=== PATIENT | male | born 1955 | race Two or more races ===

== ENCOUNTER 2017-07-21 16:06 | Emergency (ER) | payer BC, OTHER ==
[~2017-07-21] VITALS: Ht 167.6 cm; Wt 77.1 kg
[2017-07-21 16:26] VITALS: BP 180/77
[2017-07-21] MEDS ORDERED: KETOROLAC TROMETHAMINE INJ 30 MG/ML VIAL ONE (16:46)
[2017-07-21] MEDS: KETOROLAC TROMETHAMINE INJ 60 MG/2 ML VIAL IM ONE (16:54)
== END 2017-07-21 18:08 | disposition home or self-care (01) ==
LOC: ER 16:11
DX: M54.42 Lumbago with sciatica, left side (principal); E11.9 Type 2 diabetes mellitus without complications; E78.00 Pure hypercholesterolemia, unspecified; G89.29 Other chronic pain; I10 Essential (primary) hypertension; I70.0 Atherosclerosis of aorta; M51.26 Other intervertebral disc displacement, lumbar region; Z88.0 Allergy status to penicillin
CPT/HCPCS: 72100-TC; A4606; J1885; Z7610

== ENCOUNTER 2021-06-18 12:42 | Emergency (ER) | payer MEDICARE, BC ==
[~2021-06-18] VITALS: Ht 170.2 cm; Wt 83.9 kg
--- NOTE | 2021-06-18 13:28 | NUR ---
BIBS, C/O TINGLING BURNING SENSATION BI-LATERAL LOWER EXTREMETIES AND FEET. PAIN 2/10 AT THIS TIME BUT GETS WORSE PAIN AT TIMES.
--- NOTE | 2021-06-18 13:30 | NUR ---
PLACE INTO ER BED 9, MONITOR APPLIED, B/P CUFF AND OXYGEN READING MIDDLE LEFT FINGER, 02= [phone], CHANGED INTO HOSP GOWN, WARM BLANKET PROVIDED, PATIENT AAO x 4. NO SOB, BREATHING EVEN AND UNLABORED. YORUBA SPEAKING AWAITING MD BORRERO
--- NOTE | 2021-06-18 14:10 | NUR ---
BS -175 AT THIS TIME.
[2021-06-18 14:38] LABS: BASOPHILS % (AUTO) 0.4 % (0.0-2.0); EOSINOPHILS % (AUTO) 1.7 % (0.0-6.0); HEMATOCRIT 44 % (39-51); HEMOGLOBIN 14.7 g/dL (13.5-17.5); LYMPHOCYTES % (AUTO) 27.7 % (20.0-44.0); MEAN CORPUSCULAR HGB CONC 33 g/dl (31.0-36.0); MEAN CORPUSCULAR VOLUME 88 fL (80-96); MONOCYTES # (AUTO) 0.4 K/uL (0.1-1.30); NEUTROPHILS # (AUTO) 4.7 K/uL (1.8-8.9); NEUTROPHILS % (AUTO) 65.2 % (43.0-81.0); PLATELET COUNT (AUTO) 220 K/uL (150-450); RED BLOOD CELL COUNT(AUTO) 5.02 MIL/uL (4.5-6.0); WHITE BLOOD COUNT (AUTO) 7.2 K/uL (4.3-11.0)
[2021-06-18 14:50] LABS: CALCIUM, SERUM 9.7 mg/dL (8.5-10.1); CREATININE 0.9 mg/dL (0.6-1.3); POTASSIUM 3.9 mmol/L (3.5-5.1)
[2021-06-18 15:46] VITALS: BP 132/82
== END 2021-06-18 15:48 | disposition home or self-care (01) ==
LOC: ER 12:46
DX: R20.2 Paresthesia of skin (principal); E11.40 Type 2 diabetes mellitus with diabetic neuropathy, unspecified; I10 Essential (primary) hypertension; E78.00 Pure hypercholesterolemia, unspecified; Z88.0 Allergy status to penicillin
CPT/HCPCS: 36415; 80048-TC; 82962-TC; 85025-TC

== ENCOUNTER 2024-12-22 16:31 | Emergency (ER) | payer MEDICARE, OTHER ==
[~2024-12-22] VITALS: Ht 170.2 cm; Wt 74.8 kg
[2024-12-22 16:35] VITALS: BP 119/70; TEMP 98.3; O2SAT 97
== END 2024-12-22 18:25 | disposition left against medical advice (07) ==
LOC: ER 16:37
DX: M79.661 Pain in right lower leg (principal); M79.662 Pain in left lower leg; Z53.21 Procedure and treatment not carried out due to patient leaving prior to being seen by health care provider